=== PATIENT | female | born 1955 | race Caucasian/White ===

== ENCOUNTER 2018-12-16 09:42 | Day surgery (SDC) | payer BC, OTHER ==
[2018-12-13 14:00] VITALS: BMI 36.5
[2018-12-16 12:45] VITALS: BP 118/65; PULSE 75; TEMP 98
== END 2018-12-16 12:47 | disposition home or self-care (01) ==
LOC: FASU-ENDO 09:42
PROVIDERS: ATTEND Internal Medicine Gastroenterology
PROC: 0DJD8ZZ Inspection of Lower Intestinal Tract, Via Natural or Artificial Opening Endoscopic (ICD-10-PCS; principal; 2018-12-16 11:48)
DX: Z12.11 Encounter for screening for malignant neoplasm of colon (principal); K64.8 Other hemorrhoids

== ENCOUNTER 2022-01-20 22:32 | Inpatient (IN) | payer OTHER, BC ==
[2022-01-20 22:40] VITALS: BMI 37.0
[2022-01-21 01:16] LABS: BASO % 0.7 % (0-2.0); EOS % 2.8 % (0-4.5); HEMATOCRIT 37.7 % (32.4-45.2); HEMOGLOBIN 12.4 GM/dL (10.7-15.3); LYMPH % 24.7 % (8-40); MCH 27.1 pg (25.7-33.7); MCHC 32.9 g/dl (32.0-36.0); MEAN CELL VOLUME 82.3 fl (80-96); MEAN PLT VOLUME 8.1 fl (7.5-11.1); MONO % 6.6 % (3.8-10.2); NEUT % 65.2 % (42.8-82.8); PLATELET COUNT 302 10^3/uL (134-434); RBC 4.59 M/mm3 (3.60-5.2); WHITE BLOOD COUNT 7.6 K/mm3 (4.0-10.0)
[2022-01-21 01:22] LABS: PROTHROMBIN TIME (PATIENT) 11.5 SEC (9.7-13.0)
[2022-01-21 01:25] LABS: ACTIVATED PTT 28.9 SECONDS (25.2-36.5)
[2022-01-21 01:35] LABS: ALBUMIN 3.9 g/dl (3.4-5.0); BLOOD UREA NITROGEN 17.8 mg/dL (7-18); CALCIUM 9.9 mg/dL (8.5-10.1)
[2022-01-21 01:38] LABS: CREATININE 0.7 mg/dL (0.55-1.3)
[2022-01-21 01:40] LABS: BILIRUBIN,TOTAL 0.4 mg/dL (0.2-1); TOT PROT 7.3 g/dl (6.4-8.2)
[2022-01-21] MEDS ORDERED: CLINDAMYCIN 600MG PREMIX IVPB 600 MG/50 ML BAG IVPB ONE ×2 (01:41→01:44)
[2022-01-21 03:47] LABS: EPI CELLS 35 /uL (0-25.1); HYALINE CASTS 4 /uL (0-3.1); URINE APPEARANCE CLEAR; URINE BACTERIA 78 /uL (0-1359); URINE BILIRUBIN NEGATIVE (NEGATIVE); URINE COLOR YELLOW; URINE GLUCOSE (UA) NEGATIVE (NEGATIVE); URINE KETONE NEGATIVE (NEGATIVE); URINE LEUK ESTERASE 2+ (NEGATIVE); URINE NITRITE NEGATIVE (NEGATIVE); URINE PROTEIN NEGATIVE (NEGATIVE); URINE RBC 10 /uL (0-23.9); URINE UROBILINOGEN 0.2 mg/dL (0.2-1.0); URINE WBC 344 /uL (0-25.8)
[2022-01-21] MEDS: INSULIN SLIDING SCALE (NOVOLOG) 1 VIAL SQ SCH ×3 (07:26→16:35)
[2022-01-21] MEDS ORDERED: ENOXAPARIN NA (PORCINE) 40 MG/0.4 ML DISP.SYRIN SQ ONE (09:09)
[2022-01-21] MEDS ORDERED: CLINDAMYCIN 900 MG PREMIX IVPB 900 MG/50 ML BAG IVPB ONE ×2 (09:09→17:22)
[2022-01-21] MEDS: CLINDAMYCIN 900 MG PREMIX IVPB 900 MG/50 ML BAG IVPB SCH ×2 (09:29→17:40)
[2022-01-21] MEDS: ENOXAPARIN NA (PORCINE) 40 MG/0.4 ML DISP.SYRIN SQ SCH (09:29)
[2022-01-21] MEDS ORDERED: NITROFURANTOIN MACROCRYSTAL 50 MG CAPSULE (FP) PO SCH (10:00)
[2022-01-21 12:26] LABS: BASO % 0.8 % (0-2.0); EOS % 2.8 % (0-4.5); HEMATOCRIT 33.5 % (32.4-45.2); HEMOGLOBIN 11.2 GM/dL (10.7-15.3); LYMPH % 30.2 % (8-40); MCH 27.4 pg (25.7-33.7); MCHC 33.4 g/dl (32.0-36.0); MEAN CELL VOLUME 81.9 fl (80-96); MEAN PLT VOLUME 7.4 fl (7.5-11.1); MONO % 7.3 % (3.8-10.2); NEUT % 58.9 % (42.8-82.8); PLATELET COUNT 264 10^3/uL (134-434); RBC 4.09 M/mm3 (3.60-5.2); RDW 15.3 % (11.6-15.6); WHITE BLOOD COUNT 6.6 K/mm3 (4.0-10.0)
[2022-01-21 12:47] LABS: CALCIUM 9.3 mg/dL (8.5-10.1)
[2022-01-21 12:48] LABS: ALBUMIN 3.4 g/dl (3.4-5.0); BLOOD UREA NITROGEN 14.6 mg/dL (7-18)
[2022-01-21 12:51] LABS: CREATININE 0.7 mg/dL (0.55-1.3)
[2022-01-21 12:52] LABS: BILIRUBIN,TOTAL 0.5 mg/dL (0.2-1); TOT PROT 6.5 g/dl (6.4-8.2)
[2022-01-22] MEDS: INSULIN SLIDING SCALE (NOVOLOG) 1 VIAL SQ SCH ×5 (01:29→21:54)
[2022-01-22] MEDS ORDERED: CLINDAMYCIN 900 MG PREMIX IVPB 900 MG/50 ML BAG IVPB ONE ×2 (01:30→09:00)
[2022-01-22] MEDS: CLINDAMYCIN 900 MG PREMIX IVPB 900 MG/50 ML BAG IVPB SCH ×3 (01:35→18:25)
[2022-01-22 08:29] LABS: BASO % 0.5 % (0-2.0); EOS % 3.2 % (0-4.5); HEMOGLOBIN 11.9 GM/dL (10.7-15.3); LYMPH % 23.6 % (8-40); MCH 27.6 pg (25.7-33.7); MCHC 33.8 g/dl (32.0-36.0); MEAN CELL VOLUME 81.7 fl (80-96); MEAN PLT VOLUME 7.6 fl (7.5-11.1); MONO % 7.8 % (3.8-10.2); NEUT % 64.9 % (42.8-82.8); PLATELET COUNT 273 10^3/uL (134-434); RBC 4.29 M/mm3 (3.60-5.2); RDW 15.2 % (11.6-15.6); WHITE BLOOD COUNT 6.3 K/mm3 (4.0-10.0)
[2022-01-22 08:44] LABS: CALCIUM 9.4 mg/dL (8.5-10.1)
[2022-01-22 08:45] LABS: ALBUMIN 3.6 g/dl (3.4-5.0); BLOOD UREA NITROGEN 15.7 mg/dL (7-18); MAGNESIUM 2.2 mg/dL (1.8-2.4)
[2022-01-22 08:47] LABS: PHOSPHOROUS 4.4 mg/dL (2.5-4.9)
[2022-01-22 08:48] LABS: BILIRUBIN,TOTAL 0.5 mg/dL (0.2-1); CREATININE 0.7 mg/dL (0.55-1.3); TOT PROT 6.7 g/dl (6.4-8.2)
[2022-01-22] MEDS ORDERED: ENOXAPARIN NA (PORCINE) 40 MG/0.4 ML DISP.SYRIN SQ ONE (09:00)
[2022-01-22] MEDS: ENOXAPARIN NA (PORCINE) 40 MG/0.4 ML DISP.SYRIN SQ SCH (09:43)
[2022-01-23] MEDS ORDERED: ATORVASTATIN CA 20 MG TABLET (FP) PO ONE (01:34)
[2022-01-23] MEDS: CLINDAMYCIN 900 MG PREMIX IVPB 900 MG/50 ML BAG IVPB SCH ×3 (01:43→17:38)
[2022-01-23] MEDS: INSULIN SLIDING SCALE (NOVOLOG) 1 VIAL SQ SCH ×4 (06:39→21:17)
[2022-01-23] MEDS: ENOXAPARIN NA (PORCINE) 40 MG/0.4 ML DISP.SYRIN SQ SCH (09:52)
[2022-01-23] MEDS: IBUPROFEN 400 MG TABLET (FP) PO PRN ×2 (10:29→21:19)
[2022-01-23 10:57] VITALS: RESP 18
[2022-01-23 12:41] LABS: EOS % 3.5 % (0-4.5); HEMATOCRIT 34.5 % (32.4-45.2); HEMOGLOBIN 11.5 GM/dL (10.7-15.3); LYMPH % 22.9 % (8-40); MCH 27.4 pg (25.7-33.7); MCHC 33.5 g/dl (32.0-36.0); MEAN CELL VOLUME 81.8 fl (80-96); MONO % 8.7 % (3.8-10.2); NEUT % 63.9 % (42.8-82.8); PLATELET COUNT 291 10^3/uL (134-434); RBC 4.21 M/mm3 (3.60-5.2); RDW 14.8 % (11.6-15.6); WHITE BLOOD COUNT 6.5 K/mm3 (4.0-10.0)
[2022-01-23 13:08] LABS: ALBUMIN 3.5 g/dl (3.4-5.0); CALCIUM 9.2 mg/dL (8.5-10.1); MAGNESIUM 2.5 mg/dL (1.8-2.4)
[2022-01-23 13:11] LABS: CREATININE 0.6 mg/dL (0.55-1.3); PHOSPHOROUS 4.5 mg/dL (2.5-4.9)
[2022-01-23 13:13] LABS: BILIRUBIN,TOTAL 0.4 mg/dL (0.2-1); TOT PROT 6.8 g/dl (6.4-8.2)
[2022-01-23] MEDS ORDERED: INSULIN (NOVOLOG) ASPART 100 UNITS/ML 10ML VIAL ONE (21:06)
[2022-01-23] MEDS: ATORVASTATIN CA 20 MG TABLET (FP) PO SCH (21:17)
[2022-01-24] MEDS: CLINDAMYCIN 900 MG PREMIX IVPB 900 MG/50 ML BAG IVPB SCH ×3 (01:13→17:32)
[2022-01-24] MEDS: INSULIN SLIDING SCALE (NOVOLOG) 1 VIAL SQ SCH ×4 (06:28→22:22)
[2022-01-24] MEDS: ENOXAPARIN NA (PORCINE) 40 MG/0.4 ML DISP.SYRIN SQ SCH (09:54)
[2022-01-24] MEDS: IBUPROFEN 400 MG TABLET (FP) PO PRN ×2 (09:54→22:21)
[2022-01-24 12:55] LABS: HEMOGLOBIN 12.2 GM/dL (10.7-15.3); MCH 27.1 pg (25.7-33.7); MCHC 32.9 g/dl (32.0-36.0); MEAN CELL VOLUME 82.4 fl (80-96); MEAN PLT VOLUME 7.7 fl (7.5-11.1); PLATELET COUNT 308 10^3/uL (134-434); RBC 4.49 M/mm3 (3.60-5.2); WHITE BLOOD COUNT 5.8 K/mm3 (4.0-10.0)
[2022-01-24 14:02] LABS: ALBUMIN 3.8 g/dl (3.4-5.0); BLOOD UREA NITROGEN 15.9 mg/dL (7-18); CALCIUM 9.8 mg/dL (8.5-10.1)
[2022-01-24 14:03] LABS: MAGNESIUM 2.4 mg/dL (1.8-2.4)
[2022-01-24 14:05] LABS: CREATININE 0.6 mg/dL (0.55-1.3)
[2022-01-24 14:06] LABS: TOT PROT 7.1 g/dl (6.4-8.2)
[2022-01-24 14:07] LABS: BILIRUBIN,TOTAL 0.4 mg/dL (0.2-1)
[2022-01-24] MEDS: ATORVASTATIN CA 20 MG TABLET (FP) PO SCH (22:22)
[2022-01-25] MEDS: CLINDAMYCIN 900 MG PREMIX IVPB 900 MG/50 ML BAG IVPB SCH ×3 (02:07→17:21)
[2022-01-25] MEDS: INSULIN SLIDING SCALE (NOVOLOG) 1 VIAL SQ SCH ×4 (06:35→21:22)
[2022-01-25] MEDS ORDERED: INSULIN (NOVOLOG MIX 70/30) 100 UNITS/ML MDV SQ ONE (06:50)
[2022-01-25 08:23] LABS: HEMATOCRIT 35.9 % (32.4-45.2); HEMOGLOBIN 11.9 GM/dL (10.7-15.3); MCH 27.2 pg (25.7-33.7); MEAN CELL VOLUME 82.5 fl (80-96); MEAN PLT VOLUME 7.9 fl (7.5-11.1); PLATELET COUNT 307 10^3/uL (134-434); RBC 4.36 M/mm3 (3.60-5.2); RDW 15.2 % (11.6-15.6); WHITE BLOOD COUNT 5.2 K/mm3 (4.0-10.0)
[2022-01-25 08:46] LABS: CALCIUM 9.4 mg/dL (8.5-10.1)
[2022-01-25 08:47] LABS: ALBUMIN 3.5 g/dl (3.4-5.0); BLOOD UREA NITROGEN 16.4 mg/dL (7-18)
[2022-01-25 08:50] LABS: CREATININE 0.6 mg/dL (0.55-1.3)
[2022-01-25 08:51] LABS: BILIRUBIN,TOTAL 0.4 mg/dL (0.2-1); TOT PROT 6.7 g/dl (6.4-8.2)
[2022-01-25] MEDS: ENOXAPARIN NA (PORCINE) 40 MG/0.4 ML DISP.SYRIN SQ SCH (09:07)
[2022-01-25] MEDS: IBUPROFEN 400 MG TABLET (FP) PO PRN ×2 (11:32→21:21)
[2022-01-25] MEDS: ATORVASTATIN CA 20 MG TABLET (FP) PO SCH (21:22)
[2022-01-26] MEDS: CLINDAMYCIN 900 MG PREMIX IVPB 900 MG/50 ML BAG IVPB SCH (02:04)
[2022-01-26] MEDS: INSULIN SLIDING SCALE (NOVOLOG) 1 VIAL SQ SCH (06:27)
[2022-01-26 08:40] VITALS: BP 137/68; PULSE 90; TEMP 97.5
== END 2022-01-26 09:41 | disposition home health service (06) | DRG 603 ==
LOC: JER 22:32 → JERBED 01-21 00:06 → J6S 01-22 17:33
PROVIDERS: ADMIT Internal Medicine; ATTEND Internal Medicine
DX: L03.116 Cellulitis of left lower limb (principal); L97.909 Non-pressure chronic ulcer of unspecified part of unspecified lower leg with unspecified severity; N39.0 Urinary tract infection, site not specified; E11.42 Type 2 diabetes mellitus with diabetic polyneuropathy; E11.621 Type 2 diabetes mellitus with foot ulcer; E78.5 Hyperlipidemia, unspecified; E66.9 Obesity, unspecified; Z68.37 Body mass index [BMI] 37.0-37.9, adult
CPT/HCPCS: 11042; 36415; 71045-TC-FY; 73630-TC-LT; 73718-TC-LT; 80053; 81003; 82962; 83036; 83735; 84100; 85025; 85027; 85610; 85730; 86140; 87040; 87077; 87086; 93005; 93010; 93971-TC; 97116-GP; 97162-GP; 99285-25; C9803-CS; U0003; U0005

== ENCOUNTER 2022-03-31 16:31 | Inpatient (IN) | payer OTHER, BC ==
[2022-03-31] MEDS ORDERED: ACETAMINOPHEN 325 MG TABLET (FP) PO ONE (17:53)
[2022-03-31] MEDS ORDERED: ACETAMINOPHEN 325 MG TABLET (FP) ONE (17:55)
[2022-03-31 18:27] LABS: BASO % 0.7 % (0-2.0); EOS % 1.4 % (0-4.5); HEMATOCRIT 37.9 % (32.4-45.2); HEMOGLOBIN 12.2 GM/dL (10.7-15.3); LYMPH % 17.6 % (8-40); MCH 26.4 pg (25.7-33.7); MCHC 32.1 g/dl (32.0-36.0); MEAN CELL VOLUME 82.3 fl (80-96); MEAN PLT VOLUME 8.1 fl (7.5-11.1); MONO % 8.1 % (3.8-10.2); NEUT % 72.2 % (42.8-82.8); PLATELET COUNT 292 10^3/uL (134-434); RDW 15.3 % (11.6-15.6); WHITE BLOOD COUNT 9.5 K/mm3 (4.0-10.0)
[2022-03-31 18:57] LABS: CALCIUM 9.4 mg/dL (8.5-10.1)
[2022-03-31 18:58] LABS: ALBUMIN 3.3 g/dl (3.4-5.0); BLOOD UREA NITROGEN 23.4 mg/dL (7-18); MAGNESIUM 2.2 mg/dL (1.8-2.4)
[2022-03-31 19:01] LABS: CREATININE 0.7 mg/dL (0.55-1.3)
[2022-03-31 19:02] LABS: BILIRUBIN,TOTAL 0.4 mg/dL (0.2-1); TOT PROT 6.7 g/dl (6.4-8.2)
[2022-03-31] MEDS ORDERED: KETOROLAC TROMETHAMINE 15 MG/ML VIAL IVPUSH ONE (20:21)
[2022-03-31] MEDS ORDERED: LACTATED RINGERS SOLUTION 1,000 ML IV STA (20:21)
[2022-03-31] MEDS ORDERED: KETOROLAC TROMETHAMINE 15 MG/ML VIAL ONE (20:36)
[2022-03-31] MEDS: LACTATED RINGERS SOLUTION 1,000 ML/1,000 ML INFUS.BAG IV SCH (20:46)
[2022-03-31] MEDS ORDERED: ACETAMINOPHEN 1000 MG/100 ML BAG IVPB PRN (23:16)
[2022-03-31] MEDS: INSULIN SLIDING SCALE (NOVOLOG) 1 VIAL SQ SCH (23:34)
[2022-04-01] MEDS: INSULIN SLIDING SCALE (NOVOLOG) 1 VIAL SQ SCH ×4 (08:28→23:28)
[2022-04-01 09:36] LABS: BASO % 0.3 % (0-2.0); EOS % 2.4 % (0-4.5); HEMATOCRIT 33.1 % (32.4-45.2); HEMOGLOBIN 10.7 GM/dL (10.7-15.3); LYMPH % 23.4 % (8-40); MCH 26.7 pg (25.7-33.7); MCHC 32.4 g/dl (32.0-36.0); MEAN CELL VOLUME 82.2 fl (80-96); MONO % 7.3 % (3.8-10.2); NEUT % 66.6 % (42.8-82.8); PLATELET COUNT 265 10^3/uL (134-434); RBC 4.02 M/mm3 (3.60-5.2); WHITE BLOOD COUNT 7.2 K/mm3 (4.0-10.0)
[2022-04-01 10:09] LABS: CALCIUM 9.2 mg/dL (8.5-10.1); CREATININE 0.5 mg/dL (0.55-1.3); PHOSPHOROUS 3.9 mg/dL (2.5-4.9)
[2022-04-01 10:10] LABS: BILIRUBIN,TOTAL 0.7 mg/dL (0.2-1); BLOOD UREA NITROGEN 21.4 mg/dL (7-18); TOT PROT 6.1 g/dl (6.4-8.2)
[2022-04-01 10:11] LABS: MAGNESIUM 2.1 mg/dL (1.8-2.4)
[2022-04-01] MEDS: ENOXAPARIN NA (PORCINE) 40 MG/0.4 ML DISP.SYRIN SQ SCH (10:22)
[2022-04-01] MEDS: LACTATED RINGERS SOLUTION 1,000 ML/1,000 ML INFUS.BAG IV SCH ×2 (10:23→22:33)
[2022-04-01 11:53] VITALS: BMI 37.5
[2022-04-01] MEDS: ATORVASTATIN CA 20 MG TABLET (FP) PO SCH (22:33)
[2022-04-02] MEDS: INSULIN SLIDING SCALE (NOVOLOG) 1 VIAL SQ SCH ×4 (07:41→22:36)
[2022-04-02] MEDS: ENOXAPARIN NA (PORCINE) 40 MG/0.4 ML DISP.SYRIN SQ SCH (10:09)
[2022-04-02] MEDS: LACTATED RINGERS SOLUTION 1,000 ML/1,000 ML INFUS.BAG IV SCH ×2 (14:37→22:19)
[2022-04-02] MEDS ORDERED: ACETAMINOPHEN 325 MG TABLET (FP) PO PRN (17:21)
[2022-04-02] MEDS: ATORVASTATIN CA 20 MG TABLET (FP) PO SCH (22:19)
[2022-04-03] MEDS: INSULIN SLIDING SCALE (NOVOLOG) 1 VIAL SQ SCH ×4 (07:23→22:28)
[2022-04-03] MEDS: ENOXAPARIN NA (PORCINE) 40 MG/0.4 ML DISP.SYRIN SQ SCH (09:49)
[2022-04-03 10:23] LABS: HEMOGLOBIN 11.2 GM/dL (10.7-15.3); MCH 26.8 pg (25.7-33.7); MCHC 32.8 g/dl (32.0-36.0); MEAN CELL VOLUME 81.8 fl (80-96); MEAN PLT VOLUME 8.3 fl (7.5-11.1); PLATELET COUNT 297 10^3/uL (134-434); RBC 4.16 M/mm3 (3.60-5.2); RDW 15.1 % (11.6-15.6); WHITE BLOOD COUNT 5.9 K/mm3 (4.0-10.0)
[2022-04-03] MEDS ORDERED: INSULIN (NOVOLOG) ASPART 100 UNITS/ML 10ML VIAL ONE ×2 (10:59→17:09)
[2022-04-03 11:58] LABS: CALCIUM 9.6 mg/dL (8.5-10.1)
[2022-04-03 11:59] LABS: ALBUMIN 3.2 g/dl (3.4-5.0)
[2022-04-03 12:02] LABS: CREATININE 0.5 mg/dL (0.55-1.3)
[2022-04-03 12:03] LABS: BILIRUBIN,TOTAL 0.6 mg/dL (0.2-1)
[2022-04-03 12:07] LABS: TOT PROT 6.6 g/dl (6.4-8.2)
[2022-04-03 12:10] LABS: BLOOD UREA NITROGEN 11.6 mg/dL (7-18)
[2022-04-03] MEDS: LACTATED RINGERS SOLUTION 1,000 ML/1,000 ML INFUS.BAG IV SCH ×2 (20:30→22:31)
[2022-04-03] MEDS: ATORVASTATIN CA 20 MG TABLET (FP) PO SCH (22:26)
[2022-04-04] MEDS: INSULIN SLIDING SCALE (NOVOLOG) 1 VIAL SQ SCH ×4 (06:22→21:23)
[2022-04-04] MEDS: LACTATED RINGERS SOLUTION 1,000 ML/1,000 ML INFUS.BAG IV SCH (08:47)
[2022-04-04] MEDS: ENOXAPARIN NA (PORCINE) 40 MG/0.4 ML DISP.SYRIN SQ SCH (09:24)
[2022-04-04 10:44] LABS: EOS % 1.8 % (0-4.5); HEMATOCRIT 33.4 % (32.4-45.2); HEMOGLOBIN 10.8 GM/dL (10.7-15.3); LYMPH % 18.8 % (8-40); MCH 26.5 pg (25.7-33.7); MCHC 32.5 g/dl (32.0-36.0); MEAN CELL VOLUME 81.8 fl (80-96); MEAN PLT VOLUME 8.2 fl (7.5-11.1); MONO % 11.8 % (3.8-10.2); NEUT % 66.6 % (42.8-82.8); PLATELET COUNT 301 10^3/uL (134-434); RBC 4.08 M/mm3 (3.60-5.2); WHITE BLOOD COUNT 4.7 K/mm3 (4.0-10.0)
[2022-04-04 11:21] LABS: CALCIUM 9.5 mg/dL (8.5-10.1)
[2022-04-04 11:22] LABS: ALBUMIN 3.1 g/dl (3.4-5.0); BLOOD UREA NITROGEN 11.8 mg/dL (7-18); MAGNESIUM 2.3 mg/dL (1.8-2.4)
[2022-04-04 11:25] LABS: CREATININE 0.6 mg/dL (0.55-1.3); PHOSPHOROUS 4.2 mg/dL (2.5-4.9)
[2022-04-04 11:26] LABS: BILIRUBIN,TOTAL 0.4 mg/dL (0.2-1); TOT PROT 6.4 g/dl (6.4-8.2)
[2022-04-05 00:18] VITALS: RESP 18
[2022-04-05] MEDS: INSULIN SLIDING SCALE (NOVOLOG) 1 VIAL SQ SCH ×2 (06:48→12:03)
[2022-04-05 07:08] VITALS: BP 135/79; PULSE 87; TEMP 98.4
[2022-04-05] MEDS: ENOXAPARIN NA (PORCINE) 40 MG/0.4 ML DISP.SYRIN SQ SCH (10:57)
== END 2022-04-05 13:33 | DRG 557 ==
LOC: JER 16:31 → JERBED 20:23 → J8W 04-01 08:05 → J5S 04-04 20:18
PROVIDERS: ADMIT Internal Medicine; ATTEND Internal Medicine
DX: M62.82 Rhabdomyolysis (principal); U07.1 COVID-19; I10 Essential (primary) hypertension; E11.9 Type 2 diabetes mellitus without complications; M25.561 Pain in right knee; R26.2 Difficulty in walking, not elsewhere classified; R74.01 Elevation of levels of liver transaminase levels; M17.0 Bilateral primary osteoarthritis of knee
CPT/HCPCS: 0241U-QW; 36415; 73562-TC-LT-FY; 73562-TC-RT-FY; 80053; 82550; 82553; 82962; 83735; 84100; 85025; 85027; 93970-TC; 97116-GP; 97162-GP; 99285-25; C9803-CS; U0003; U0005

== ENCOUNTER 2022-09-01 04:06 | Day surgery (SDC) | payer OTHER, BC ==
[2022-08-31 09:35] VITALS: BMI 36.0
[2022-09-01] MEDS ORDERED: MIDAZOLAM HCL 2 MG/2 ML SINGLE DOSE VIAL ONE (09:27)
[2022-09-01] MEDS ORDERED: PROPOFOL 40 ML ONE ×2 (09:27→12:00)
[2022-09-01] MEDS ORDERED: CLINDAMYCIN 600MG PREMIX IVPB 1,200 MG/100 ML BAG IVPB ONE (10:21)
[2022-09-01] MEDS ORDERED: CLINDAMYCIN 900 MG PREMIX BAG IVPB ONE (10:25)
[2022-09-01] MEDS ORDERED: PROPOFOL 20 ML ONE ×4 (10:26→12:06)
[2022-09-01] MEDS ORDERED: PHENYLEPHRINE HCL 10 MG/1 ML SINGLE DOSE VIAL ONE (10:31)
[2022-09-01] MEDS ORDERED: BUPIVACAINE HCL/PF 0.5% (5 MG/ML) 30 ML VIAL IJ ONE (10:36)
[2022-09-01] MEDS ORDERED: LIDO 2%/EPI 1:200000 PRESRVFRE (20 ML SDVIAL) INF ONE (10:36)
[2022-09-01] MEDS ORDERED: oxyCODONE HCL 5 MG TABLET PO PRN (11:38)
[2022-09-01] MEDS ORDERED: ACETAMINOPHEN 325 MG TABLET (FP) PO PRN (11:38)
[2022-09-01] MEDS ORDERED: LACTATED RINGERS SOLUTION 1,000 ML IV SCH (11:45)
[2022-09-01 12:31] VITALS: RESP 18
[2022-09-01 15:07] VITALS: BP 130/70; PULSE 84; TEMP 98
== END 2022-09-01 13:35 | disposition home or self-care (01) ==
LOC: JASU-SURG 04:06
PROVIDERS: ATTEND Podiatrist Foot Surgery
PROC: 0QBP0ZZ Excision of Left Metatarsal, Open Approach (ICD-10-PCS; principal; 2022-09-01 10:00)
DX: M20.22 Hallux rigidus, left foot (principal)
CPT/HCPCS: 82962; 88304-TC; 88311-TC; 94760

== ENCOUNTER 2023-12-10 08:34 | Day surgery (SDC) | payer OTHER, BC ==
[2023-12-05 15:26] VITALS: BMI 36.0
[2023-12-10 10:43] VITALS: PULSE 98; TEMP 97.3
[2023-12-10 10:46] VITALS: BP 134/70; RESP 18
== END 2023-12-10 10:35 | disposition home or self-care (01) ==
LOC: FASU-ENDO 08:34
PROVIDERS: ATTEND Internal Medicine Gastroenterology
PROC: 0DBP8ZX Excision of Rectum, Via Natural or Artificial Opening Endoscopic, Diagnostic (ICD-10-PCS; principal; 2023-12-10 09:37)
DX: R19.7 Diarrhea, unspecified (principal)
CPT/HCPCS: 82962; 88305-TC

== ENCOUNTER 2024-01-28 15:37 | Emergency (ER) | payer OTHER, BC ==
[2024-01-28 17:58] VITALS: BMI 36.0
[2024-01-28 18:59] LABS: VENOUS BASE EXCESS 3.8 mmol/L (-2-2); VENOUS O2 SATURATION 58.7 % (70-80); VENOUS PCO2 43.6 mmHg (38-52); VENOUS PH 7.434 (7.310-7.410)
[2024-01-28 19:07] LABS: BASO % 0.9 % (0-2.0); EOS % 0.6 % (0-4.5); HEMATOCRIT 37.9 % (32.4-45.2); HEMOGLOBIN 12.4 GM/dL (10.7-15.3); LYMPH % 19.5 % (8-40); MCH 27.3 pg (25.7-33.7); MCHC 32.7 g/dl (32.0-36.0); MEAN CELL VOLUME 83.6 fl (80-96); MEAN PLT VOLUME 7.3 fl (7.5-11.1); MONO % 8.3 % (3.8-10.2); NEUT % 70.7 % (42.8-82.8); PLATELET COUNT 305 10^3/uL (134-434); RBC 4.53 M/mm3 (3.60-5.2); WHITE BLOOD COUNT 10.4 K/mm3 (4.0-10.0)
[2024-01-28 19:33] LABS: POTASSIUM 4.5 mmol/L (3.5-5.1)
[2024-01-28 19:35] LABS: ALBUMIN 3.2 g/dl (3.4-5.0); BLOOD UREA NITROGEN 18.1 mg/dL (7-18); CALCIUM 10.5 mg/dL (8.5-10.1)
[2024-01-28 19:38] LABS: CREATININE 0.8 mg/dL (0.55-1.3)
[2024-01-28 19:40] LABS: BILIRUBIN,TOTAL 0.9 mg/dL (0.2-1); TOT PROT 7.1 g/dl (6.4-8.2)
[2024-01-28] MEDS ORDERED: IGA IVPB ONE (21:45)
[2024-01-28] MEDS ORDERED: IMMUN GLOB IVPB ONE (21:45)
[2024-01-28] MEDS ORDERED: PRO IVPB ONE (21:45)
[2024-01-28] MEDS ORDERED: PRO IMMUN GLOB IVPB ONE (21:45)
[2024-01-28] MEDS: IMMUN GLOB G(IGG)/PRO/IGA 0-50 400 ML IVPB SCH (22:35)
[2024-01-28 22:54] VITALS: TEMP 98.9
[2024-01-29 02:53] VITALS: BP 158/99; PULSE 97; RESP 16
[2024-01-29] MEDS ORDERED: IMMUN GLOB G(IGG)/PRO/IGA 0-50 400 ML, IMMUN GLOB G(IGG)/PRO/IGA 0-50 200 ML, IMMUN GLOB G IVPB SCH (10:00)
== END 2024-01-29 03:10 | disposition short-term general hospital (02) ==
LOC: JER 15:37
PROC: 3E033GC Introduction of Other Therapeutic Substance into Peripheral Vein, Percutaneous Approach (ICD-10-PCS; principal; 2024-01-28)
DX: G62.9 Polyneuropathy, unspecified (principal); R20.0 Anesthesia of skin; M62.81 Muscle weakness (generalized); M25.561 Pain in right knee; M25.562 Pain in left knee; G89.29 Other chronic pain; W01.0XXA Fall on same level from slipping, tripping and stumbling without subsequent striking against object, initial encounter; Z20.822 Contact with and (suspected) exposure to COVID-19
CPT/HCPCS: 0241U-QW; 36415; 70450-TC; 71045-TC-FY; 72128-TC; 72131-TC; 72170-TC-FY; 73030-TC-LT-FY; 73030-TC-RT-FY; 80053; 82803; 83735; 84484; 85025; 99285-25; J1459

== ENCOUNTER 2024-03-24 03:23 | Inpatient (IN) | payer OTHER, BC ==
[2024-03-24] MEDS: LACTATED RINGERS SOLUTION 1000 ML INFUS.BAG IV ONE ×2 (04:45→21:19)
[2024-03-24] MEDS: ACETAMINOPHEN 1000 MG/100 ML BAG IVPB ONE (04:45)
[2024-03-24] MEDS ORDERED: VANCOMYCIN/WATER 1250 MG 1,250 MG/250 ML BAG IVPB ONE (04:50)
[2024-03-24] MEDS ORDERED: ACETAMINOPHEN INJECTION 100 ML ONE (04:50)
[2024-03-24] MEDS: VANCOMYCIN/WATER 1250 MG 1,250 MG/250 ML BAG IVPB ONE (05:00)
[2024-03-24 05:08] LABS: VENOUS BASE EXCESS 0.9 mmol/L (-2-2); VENOUS O2 SATURATION 70.1 % (70-80); VENOUS PCO2 54.7 mmHg (38-52); VENOUS PH 7.322 (7.310-7.410)
[2024-03-24 05:14] LABS: HEMATOCRIT 31.9 % (32.4-45.2); MCH 27.7 pg (25.7-33.7); MCHC 31.2 g/dl (32.0-36.0); MEAN CELL VOLUME 88.5 fl (80-96); MEAN PLT VOLUME 8.5 fl (7.5-11.1); PLATELET COUNT 292 10^3/uL (134-434); RBC 3.61 M/mm3 (3.60-5.2); RDW 19.3 % (11.6-15.6); WHITE BLOOD COUNT 3.9 K/mm3 (4.0-10.0)
[2024-03-24 05:16] LABS: EPI CELLS 6 /uL (0-25.1); HYALINE CASTS 0 /uL (0-3.1); URINE APPEARANCE TURBID; URINE BILIRUBIN 3+ (NEGATIVE); URINE COLOR RED; URINE GLUCOSE (UA) NEGATIVE (NEGATIVE); URINE KETONE NEGATIVE (NEGATIVE); URINE LEUK ESTERASE 3+ (NEGATIVE); URINE NITRITE POSITIVE (NEGATIVE); URINE PROTEIN 2+ (NEGATIVE); URINE RBC 2 /uL (0-23.9); URINE UROBILINOGEN 0.2 mg/dL (0.2-1.0); URINE WBC 0 /uL (0-25.8)
[2024-03-24 05:27] LABS: INR 1.9 (0.83-1.09); PROTHROMBIN TIME (PATIENT) 21.4 SEC (9.7-13.0)
[2024-03-24 05:29] LABS: ACTIVATED PTT 30.4 SECONDS (25.2-36.5); CHLORIDE 99 mmol/L (98-107); SODIUM 135 mmol/L (136-145)
[2024-03-24 05:31] LABS: ALBUMIN 2.4 g/dl (3.4-5.0); CALCIUM 9.3 mg/dL (8.5-10.1); CO2 25 mmol/L (21-32); GLUCOSE,RANDOM 161 mg/dL (74-106)
[2024-03-24 05:34] LABS: CREATININE 3.1 mg/dL (0.55-1.3); SGOT/AST 38 U/L (15-37); SGPT/ALT 55 U/L (13-61)
[2024-03-24 05:36] LABS: TOT PROT 6.3 g/dl (6.4-8.2)
[2024-03-24 05:37] LABS: ALK PHOS 197 U/L (45-117)
[2024-03-24 05:41] LABS: ANION GAP 11 mmol/L (4-13); BLOOD UREA NITROGEN 123.2 mg/dL (7-18); LACTIC ACID 3.4 mmol/L (0.4-2.0); POTASSIUM 9.1 mmol/L (3.5-5.1)
[2024-03-24] MEDS ORDERED: SODIUM BICARBONATE 8.4% 50 MEQ/50 ML VIAL ONE (06:10)
[2024-03-24] MEDS ORDERED: CALCIUM GLUCONATE 10% - 1,000 MG/10 ML VIAL ONE (06:10)
[2024-03-24] MEDS ORDERED: DEXTROSE 50%-WATER 25 GM/50 ML DISP.SYRIN ONE (06:11)
[2024-03-24] MEDS ORDERED: INSULIN REGULAR HUMAN 100 UNITS/ML *VIAL ONE (06:11)
[2024-03-24] MEDS: INSULIN REGULAR HUMAN 100 UNITS/ML *VIAL IVPUSH ONE (06:30)
[2024-03-24] MEDS: SODIUM BICARBONATE 8.4% 50 MEQ/50 ML DISP.SYRIN IVPUSH ONE (06:30)
[2024-03-24] MEDS: CALCIUM GLUCONATE 10% - 1,000 MG/10 ML VIAL IVPUSH ONE (06:30)
[2024-03-24] MEDS: DEXTROSE 50%-WATER 25 GM/50 ML DISP.SYRIN IVPUSH ONE (06:30)
[2024-03-24] MEDS: LACTATED RINGERS SOLUTION 1,000 ML/1,000 ML INFUS.BAG IV SCH (07:01)
[2024-03-24 07:04] LABS: ANISOCYTOSIS 2+; MACROCYTOSIS 0
[2024-03-24 07:07] LABS: CHLORIDE 100 mmol/L (98-107); SODIUM 135 mmol/L (136-145)
[2024-03-24 07:09] LABS: CALCIUM 8.9 mg/dL (8.5-10.1); CO2 25 mmol/L (21-32); GLUCOSE,RANDOM 192 mg/dL (74-106)
[2024-03-24 07:12] LABS: CREATININE 3.1 mg/dL (0.55-1.3)
[2024-03-24 07:21] LABS: ANION GAP 10 mmol/L (4-13); BLOOD UREA NITROGEN 140.1 mg/dL (7-18); POTASSIUM 8.3 mmol/L (3.5-5.1)
[2024-03-24] MEDS: SODIUM CHLORIDE 1,000 ML IV STA ×2 (10:03→14:05)
[2024-03-24 11:08] LABS: URINE BACTERIA 1726 /uL (0-1359)
[2024-03-24] MEDS: MUPIROCIN 2% TOPICAL OINTMENT FOR DECOLONIZATION NS SCH (11:35)
[2024-03-24] MEDS: NOREPINEPHRINE BITARTRATE 4,000 MCG in DEXTROSE 5%-WATER - 496 ML IV SCH (11:36)
[2024-03-24] MEDS ORDERED: SODIUM CHLORIDE 250 ML IV PRN (11:46)
[2024-03-24 14:12] LABS: IRON SERUM 22 ug/dL (50-175)
[2024-03-24 14:13] LABS: TOTAL IRON BINDING CAPACITY 204 ug/dL (250-450)
[2024-03-24 14:43] LABS: RETICULOCYTES 1.25 % (0.5-1.5)
[2024-03-24] MEDS: ALBUTEROL SO4 0.5 % INH SOLN 2.5 MG/0.5 ML VIAL.NEB. NEB SCH (15:47)
[2024-03-24] MEDS: INSULIN ASPART SLIDING SCALE (NOVOLOG) 1 VIAL SQ SCH (15:53)
[2024-03-24 16:18] LABS: POTASSIUM 4.3 mmol/L (3.5-5.1)
[2024-03-24 16:20] LABS: CALCIUM 8.4 mg/dL (8.5-10.1)
[2024-03-24 16:23] LABS: CREATININE 1.6 mg/dL (0.55-1.3)
[2024-03-24 16:27] LABS: BLOOD UREA NITROGEN 74.2 mg/dL (7-18)
[2024-03-24] MEDS: ARTIFICIAL TEARS OPHTHALMIC DROPS OU SCH (17:29)
[2024-03-24] MEDS: MEROPENEM-0.9% SODIUM CHLORIDE 1 GM/50 ML BAG IVPB SCH (17:30)
[2024-03-24] MEDS: ACETAMINOPHEN 1000 MG/100 ML BAG IVPB PRN (18:41)
[2024-03-24 20:32] LABS: MCH 27.5 pg (25.7-33.7); MCHC 31.2 g/dl (32.0-36.0); MEAN CELL VOLUME 87.9 fl (80-96); MEAN PLT VOLUME 7.7 fl (7.5-11.1); PLATELET COUNT 209 10^3/uL (134-434); RBC 2.41 M/mm3 (3.60-5.2); RDW 18.9 % (11.6-15.6); WHITE BLOOD COUNT 3.9 K/mm3 (4.0-10.0)
[2024-03-24 20:48] LABS: HEMOGLOBIN 6.6 GM/dL (10.7-15.3)
[2024-03-24 20:49] LABS: HEMATOCRIT 21.2 % (32.4-45.2)
[2024-03-24] MEDS: METOPROLOL TARTRATE 25 MG TABLET (FP) GT SCH (21:38)
[2024-03-24] MEDS: ATORVASTATIN CA 20 MG TABLET (FP) GT SCH (21:39)
[2024-03-24] MEDS: PANTOPRAZOLE SODIUM 40 MG VIAL IVPUSH SCH (21:40)
[2024-03-24] MEDS: CHLORHEXIDINE GLUCONATE 4% CLEANSER FOR DECOLONIZATION TP SCH (21:40)
[2024-03-25] MEDS: TAMSULOSIN HCL 0.4 MG CAP PO SCH (07:41)
[2024-03-25 08:44] LABS: HEMATOCRIT 24.6 % (32.4-45.2); HEMOGLOBIN 7.9 GM/dL (10.7-15.3); MCH 27.8 pg (25.7-33.7); MEAN CELL VOLUME 86.8 fl (80-96); MEAN PLT VOLUME 8.3 fl (7.5-11.1); PLATELET COUNT 214 10^3/uL (134-434); RBC 2.83 M/mm3 (3.60-5.2); RDW 18.9 % (11.6-15.6); WHITE BLOOD COUNT 6.3 K/mm3 (4.0-10.0)
[2024-03-25 08:58] LABS: POTASSIUM 4.6 mmol/L (3.5-5.1)
[2024-03-25 09:00] LABS: ALBUMIN 1.8 g/dl (3.4-5.0); BLOOD UREA NITROGEN 93.3 mg/dL (7-18); CALCIUM 8.7 mg/dL (8.5-10.1); MAGNESIUM 2.3 mg/dL (1.8-2.4)
[2024-03-25 09:03] LABS: CREATININE 2.1 mg/dL (0.55-1.3); PHOSPHOROUS 3.8 mg/dL (2.5-4.9)
[2024-03-25 09:05] LABS: BILIRUBIN,TOTAL 0.9 mg/dL (0.2-1); TOT PROT 5.1 g/dl (6.4-8.2)
[2024-03-25] MEDS: EZETIMIBE 10 MG TABLET (FP) GT SCH (09:10)
[2024-03-25] MEDS: ZINC SULFATE 220 MG CAPSULE (FP) GT SCH (09:10)
[2024-03-25 09:46] LABS: ANISOCYTOSIS 2+; MACROCYTOSIS 0
[2024-03-25] MEDS ORDERED: FAMOTIDINE 20 MG TABLET PEG SCH (10:00)
[2024-03-25] MEDS ORDERED: VANCOMYCIN ORAL SOLUTION 125 MG/2.5 ML PO SCH (10:00)
[2024-03-25] MEDS: MIDODRINE HCL 5 MG TABLET GT SCH (10:26)
[2024-03-25 15:04] LABS: HEMATOCRIT 24.4 % (32.4-45.2); HEMOGLOBIN 7.8 GM/dL (10.7-15.3); MCH 27.7 pg (25.7-33.7); MEAN CELL VOLUME 86.7 fl (80-96); MEAN PLT VOLUME 8.1 fl (7.5-11.1); PLATELET COUNT 210 10^3/uL (134-434); RBC 2.81 M/mm3 (3.60-5.2); RDW 18.9 % (11.6-15.6); WHITE BLOOD COUNT 6.1 K/mm3 (4.0-10.0)
[2024-03-25] MEDS ORDERED: DOXAZOSIN MESYLATE 1 MG TABLET PO SCH (22:00)
[2024-03-25] MEDS: ACETAMINOPHEN 1000 MG/100 ML BAG IVPB PRN (22:15)
[2024-03-26] MEDS: DOXAZOSIN MESYLATE 1 MG TABLET GT SCH (00:05)
[2024-03-26] MEDS ORDERED: LACTATED RINGERS SOLUTION 1,000 ML/1,000 ML INFUS.BAG IV SCH (00:25)
[2024-03-26 06:55] LABS: HEMATOCRIT 26.1 % (32.4-45.2); HEMOGLOBIN 8.4 GM/dL (10.7-15.3); MCH 28.1 pg (25.7-33.7); MCHC 32.1 g/dl (32.0-36.0); MEAN CELL VOLUME 87.5 fl (80-96); MEAN PLT VOLUME 8.5 fl (7.5-11.1); PLATELET COUNT 214 10^3/uL (134-434); RBC 2.98 M/mm3 (3.60-5.2); RDW 19.5 % (11.6-15.6); WHITE BLOOD COUNT 6.9 K/mm3 (4.0-10.0)
[2024-03-26 07:03] LABS: POTASSIUM 4.7 mmol/L (3.5-5.1)
[2024-03-26 07:09] LABS: CREATININE 2.3 mg/dL (0.55-1.3)
[2024-03-26 07:10] LABS: BILIRUBIN,TOTAL 0.4 mg/dL (0.2-1); TOT PROT 5.4 g/dl (6.4-8.2)
[2024-03-26] MEDS: ARTIFICIAL TEARS OPHTHALMIC DROPS OU SCH (07:11)
[2024-03-26] MEDS: INSULIN ASPART SLIDING SCALE (NOVOLOG) 1 VIAL SQ SCH (07:12)
[2024-03-26] MEDS: MIDODRINE HCL 5 MG TABLET GT SCH (07:12)
[2024-03-26] MEDS: ALBUTEROL SO4 0.5 % INH SOLN 2.5 MG/0.5 ML VIAL.NEB. NEB SCH (08:35)
[2024-03-26] MEDS: MEROPENEM-0.9% SODIUM CHLORIDE 1 GM/50 ML BAG IVPB SCH (09:01)
[2024-03-26] MEDS: ZINC SULFATE 220 MG CAPSULE (FP) GT SCH (09:02)
[2024-03-26] MEDS: PANTOPRAZOLE SODIUM 40 MG VIAL IVPUSH SCH (09:02)
[2024-03-26] MEDS: EZETIMIBE 10 MG TABLET (FP) GT SCH (09:02)
[2024-03-26] MEDS: SODIUM CHLORIDE 0.45% 1,000 ML IV SCH (09:02)
[2024-03-26] MEDS: MUPIROCIN 2% TOPICAL OINTMENT FOR DECOLONIZATION NS SCH (09:02)
[2024-03-26] MEDS: METOPROLOL TARTRATE 25 MG TABLET (FP) GT SCH (09:02)
[2024-03-26 10:53] LABS: ANISOCYTOSIS 1+; MACROCYTOSIS 0
[2024-03-26 15:48] LABS: HEMATOCRIT 25.4 % (32.4-45.2); MCH 27.6 pg (25.7-33.7); MCHC 31.5 g/dl (32.0-36.0); MEAN CELL VOLUME 87.6 fl (80-96); MEAN PLT VOLUME 8.2 fl (7.5-11.1); PLATELET COUNT 215 10^3/uL (134-434)
[2024-03-26] MEDS: SODIUM ZIRCONIUM CYCLOSILICATE (LOKELMA) 5 GM PACKET PO SCH (16:14)
[2024-03-26] MEDS: BACITRACIN ZINC 15 GM TUBE TOPICAL OINTMENT TP SCH (16:14)
[2024-03-26] MEDS: VANCOMYCIN ORAL SOLUTION 125 MG/2.5 ML PO SCH (18:28)
[2024-03-26] MEDS: APIXABAN 2.5 MG TABLET PO SCH (21:17)
[2024-03-26] MEDS: ATORVASTATIN CA 20 MG TABLET (FP) GT SCH (21:17)
[2024-03-26] MEDS: CHLORHEXIDINE GLUCONATE 4% CLEANSER FOR DECOLONIZATION TP SCH (21:18)
[2024-03-26] MEDS: ZINC OXIDE 20% TOPICAL OINTMENT 30 GM TUBE TP SCH (21:18)
[2024-03-27 06:29] LABS: HEMATOCRIT 27.7 % (32.4-45.2); HEMOGLOBIN 8.7 GM/dL (10.7-15.3); MCH 27.5 pg (25.7-33.7); MCHC 31.2 g/dl (32.0-36.0); MEAN PLT VOLUME 8.4 fl (7.5-11.1); PLATELET COUNT 221 10^3/uL (134-434); RBC 3.15 M/mm3 (3.60-5.2); RDW 19.3 % (11.6-15.6)
[2024-03-27 06:48] LABS: CALCIUM 8.6 mg/dL (8.5-10.1)
[2024-03-27 06:50] LABS: BLOOD UREA NITROGEN 85.5 mg/dL (7-18); MAGNESIUM 2.3 mg/dL (1.8-2.4)
[2024-03-27 06:52] LABS: CREATININE 1.8 mg/dL (0.55-1.3)
[2024-03-27 06:54] LABS: BILIRUBIN,TOTAL 0.3 mg/dL (0.2-1); TOT PROT 5.4 g/dl (6.4-8.2)
[2024-03-27] MEDS: SODIUM CHLORIDE 0.45% 1,000 ML IV SCH (14:45)
[2024-03-27 16:45] LABS: HEMATOCRIT 27.5 % (32.4-45.2); HEMOGLOBIN 8.6 GM/dL (10.7-15.3); MCH 27.4 pg (25.7-33.7); MCHC 31.1 g/dl (32.0-36.0); MEAN CELL VOLUME 87.9 fl (80-96); MEAN PLT VOLUME 8.1 fl (7.5-11.1); PLATELET COUNT 223 10^3/uL (134-434); RBC 3.13 M/mm3 (3.60-5.2); RDW 19.1 % (11.6-15.6); WHITE BLOOD COUNT 11.3 K/mm3 (4.0-10.0)
[2024-03-27] MEDS: ACETAMINOPHEN 1000 MG/100 ML BAG IVPB PRN (22:06)
[2024-03-27] MEDS: SIMETHICONE 40 MG/0.6 ML BOTTLE PO PRN (23:01)
[2024-03-28 06:31] LABS: HEMOGLOBIN 8.2 GM/dL (10.7-15.3); MCH 27.8 pg (25.7-33.7); MCHC 31.4 g/dl (32.0-36.0); MEAN CELL VOLUME 88.5 fl (80-96); MEAN PLT VOLUME 8.1 fl (7.5-11.1); PLATELET COUNT 229 10^3/uL (134-434); RBC 2.94 M/mm3 (3.60-5.2); RDW 18.9 % (11.6-15.6); WHITE BLOOD COUNT 11.6 K/mm3 (4.0-10.0)
[2024-03-28 06:45] LABS: POTASSIUM 3.9 mmol/L (3.5-5.1)
[2024-03-28 07:04] LABS: BLOOD UREA NITROGEN 82.4 mg/dL (7-18)
[2024-03-28 07:06] LABS: CALCIUM 8.5 mg/dL (8.5-10.1); MAGNESIUM 2.1 mg/dL (1.8-2.4)
[2024-03-28 07:10] LABS: PHOSPHOROUS 3.2 mg/dL (2.5-4.9)
[2024-03-28 07:11] LABS: BILIRUBIN,TOTAL 0.3 mg/dL (0.2-1); CREATININE 1.2 mg/dL (0.55-1.3); TOT PROT 5.1 g/dl (6.4-8.2)
[2024-03-28 08:52] LABS: ANISOCYTOSIS 0; MACROCYTOSIS 0
[2024-03-28] MEDS: SODIUM CHLORIDE 0.45% 1,000 ML IV SCH (14:24)
[2024-03-28 14:43] VITALS: BMI 32.8
[2024-03-28 16:44] LABS: HEMATOCRIT 26.5 % (32.4-45.2); HEMOGLOBIN 8.1 GM/dL (10.7-15.3); MCH 27.1 pg (25.7-33.7); MCHC 30.7 g/dl (32.0-36.0); MEAN CELL VOLUME 88.4 fl (80-96); MEAN PLT VOLUME 7.7 fl (7.5-11.1); PLATELET COUNT 235 10^3/uL (134-434); RDW 18.6 % (11.6-15.6); WHITE BLOOD COUNT 11.7 K/mm3 (4.0-10.0)
[2024-03-29 06:28] LABS: HEMATOCRIT 30.3 % (32.4-45.2); HEMOGLOBIN 9.5 GM/dL (10.7-15.3); MCH 27.8 pg (25.7-33.7); MCHC 31.2 g/dl (32.0-36.0); MEAN CELL VOLUME 88.9 fl (80-96); MEAN PLT VOLUME 7.4 fl (7.5-11.1); PLATELET COUNT 267 10^3/uL (134-434); RBC 3.41 M/mm3 (3.60-5.2); RDW 18.9 % (11.6-15.6); WHITE BLOOD COUNT 9.9 K/mm3 (4.0-10.0)
[2024-03-29 06:57] LABS: BLOOD UREA NITROGEN 75.1 mg/dL (7-18); CALCIUM 9.1 mg/dL (8.5-10.1)
[2024-03-29 06:58] LABS: ALBUMIN 2.1 g/dl (3.4-5.0)
[2024-03-29 07:01] LABS: CREATININE 0.8 mg/dL (0.55-1.3); PHOSPHOROUS 2.9 mg/dL (2.5-4.9)
[2024-03-29 07:02] LABS: BILIRUBIN,TOTAL 0.3 mg/dL (0.2-1); TOT PROT 5.4 g/dl (6.4-8.2)
[2024-03-29] MEDS ORDERED: ACETAMINOPHEN 1000 MG/100 ML BAG IVPB PRN (14:57)
[2024-03-30 07:04] LABS: HEMOGLOBIN 8.6 GM/dL (10.7-15.3); MCH 28.1 pg (25.7-33.7); MEAN CELL VOLUME 87.8 fl (80-96); MEAN PLT VOLUME 7.4 fl (7.5-11.1); PLATELET COUNT 297 10^3/uL (134-434); RBC 3.08 M/mm3 (3.60-5.2); RDW 18.1 % (11.6-15.6); WHITE BLOOD COUNT 10.9 K/mm3 (4.0-10.0)
[2024-03-30 07:25] LABS: POTASSIUM 3.9 mmol/L (3.5-5.1)
[2024-03-30 07:27] LABS: ALBUMIN 2.1 g/dl (3.4-5.0); BLOOD UREA NITROGEN 55.2 mg/dL (7-18); MAGNESIUM 1.8 mg/dL (1.8-2.4)
[2024-03-30 07:30] LABS: CREATININE 0.5 mg/dL (0.55-1.3); PHOSPHOROUS 2.4 mg/dL (2.5-4.9)
[2024-03-30 07:31] LABS: BILIRUBIN,TOTAL 0.3 mg/dL (0.2-1); TOT PROT 5.3 g/dl (6.4-8.2)
[2024-03-30 09:15] LABS: ANISOCYTOSIS 0; MACROCYTOSIS 0
[2024-03-30] MEDS: DEXTROSE 5%-WATER - 1,000 ML IV SCH (16:53)
[2024-03-30] MEDS: ACETAMINOPHEN 1000 MG/100 ML BAG IVPB PRN (17:16)
[2024-03-30] MEDS: POTASSIUM PHOSPHATE 15 MM in SODIUM CHLORIDE 250 ML IVPB ONE (18:22)
[2024-03-31 07:12] LABS: HEMATOCRIT 29.5 % (32.4-45.2); HEMOGLOBIN 9.1 GM/dL (10.7-15.3); MCH 27.3 pg (25.7-33.7); MCHC 30.9 g/dl (32.0-36.0); MEAN CELL VOLUME 88.4 fl (80-96); MEAN PLT VOLUME 7.3 fl (7.5-11.1); PLATELET COUNT 371 10^3/uL (134-434); RBC 3.34 M/mm3 (3.60-5.2); RDW 18.1 % (11.6-15.6); WHITE BLOOD COUNT 12.4 K/mm3 (4.0-10.0)
[2024-03-31 07:26] LABS: POTASSIUM 4.4 mmol/L (3.5-5.1)
[2024-03-31 07:31] LABS: ALBUMIN 2.1 g/dl (3.4-5.0); BLOOD UREA NITROGEN 40.4 mg/dL (7-18); MAGNESIUM 1.7 mg/dL (1.8-2.4)
[2024-03-31 07:34] LABS: CREATININE 0.4 mg/dL (0.55-1.3)
[2024-03-31 07:35] LABS: PHOSPHOROUS 3.5 mg/dL (2.5-4.9)
[2024-03-31 07:36] LABS: BILIRUBIN,TOTAL 0.3 mg/dL (0.2-1); TOT PROT 5.6 g/dl (6.4-8.2)
[2024-03-31] MEDS: MAGNESIUM SULF 50% (8.12 MEQ/2 ML-1 GM VIAL) IVPB ONE (10:07)
[2024-03-31] MEDS: MIDODRINE HCL 5 MG TABLET GT SCH (14:04)
[2024-03-31] MEDS: DEXTROSE 5%-WATER - 1,000 ML IV SCH (15:22)
[2024-04-01 07:17] LABS: HEMOGLOBIN 8.7 GM/dL (10.7-15.3); MCH 27.5 pg (25.7-33.7); MCHC 31.2 g/dl (32.0-36.0); MEAN PLT VOLUME 7.1 fl (7.5-11.1); PLATELET COUNT 381 10^3/uL (134-434); RBC 3.18 M/mm3 (3.60-5.2); RDW 18.6 % (11.6-15.6); WHITE BLOOD COUNT 11.9 K/mm3 (4.0-10.0)
[2024-04-01 07:34] LABS: POTASSIUM 4.6 mmol/L (3.5-5.1)
[2024-04-01 07:38] LABS: BLOOD UREA NITROGEN 35.3 mg/dL (7-18)
[2024-04-01 07:39] LABS: ALBUMIN 2.2 g/dl (3.4-5.0); CALCIUM 8.9 mg/dL (8.5-10.1)
[2024-04-01 07:40] LABS: MAGNESIUM 1.6 mg/dL (1.8-2.4)
[2024-04-01 07:43] LABS: CREATININE 0.4 mg/dL (0.55-1.3); PHOSPHOROUS 2.9 mg/dL (2.5-4.9); TOT PROT 5.5 g/dl (6.4-8.2)
[2024-04-01 07:44] LABS: BILIRUBIN,TOTAL 0.2 mg/dL (0.2-1)
[2024-04-01] MEDS: MAGNESIUM 2GM/50ML STERILE WATER IVPB IVPB ONE (09:19)
[2024-04-01] MEDS ORDERED: SIMETHICONE 40 MG/0.6 ML BOTTLE PO PRN (17:46)
[2024-04-01] MEDS ORDERED: ACETAMINOPHEN 1000 MG/100 ML BAG IVPB PRN (17:46)
[2024-04-01] MEDS: ARTIFICIAL TEARS OPHTHALMIC DROPS OU SCH (18:00)
[2024-04-01] MEDS ORDERED: MIDODRINE HCL 5 MG TABLET GT SCH (22:00)
[2024-04-01] MEDS ORDERED: CHLORHEXIDINE GLUCONATE 4% CLEANSER FOR DECOLONIZATION TP SCH (22:00)
[2024-04-01] MEDS: METOPROLOL TARTRATE 25 MG TABLET (FP) GT SCH (22:16)
[2024-04-01] MEDS: ATORVASTATIN CA 20 MG TABLET (FP) GT SCH (22:16)
[2024-04-01] MEDS: MEROPENEM-0.9% SODIUM CHLORIDE 1 GM/50 ML BAG IVPB SCH (22:16)
[2024-04-01] MEDS: PANTOPRAZOLE SODIUM 40 MG VIAL IVPUSH SCH (22:16)
[2024-04-01] MEDS: APIXABAN 2.5 MG TABLET PO SCH (22:16)
[2024-04-01] MEDS: VANCOMYCIN ORAL SOLUTION 125 MG/2.5 ML PO SCH (22:17)
[2024-04-01] MEDS: BACITRACIN ZINC 15 GM TUBE TOPICAL OINTMENT TP SCH (22:18)
[2024-04-01] MEDS: ZINC OXIDE 20% TOPICAL OINTMENT 30 GM TUBE TP SCH (22:18)
[2024-04-02] MEDS: INSULIN ASPART SLIDING SCALE (NOVOLOG) 1 VIAL SQ SCH (06:12)
[2024-04-02 08:13] VITALS: PULSE 93
[2024-04-02 09:24] LABS: BASO % 0.6 % (0-2.0); EOS % 1.9 % (0-4.5); HEMATOCRIT 29.8 % (32.4-45.2); HEMOGLOBIN 9.5 GM/dL (10.7-15.3); MCH 27.6 pg (25.7-33.7); MEAN CELL VOLUME 86.2 fl (80-96); MEAN PLT VOLUME 7.6 fl (7.5-11.1); MONO % 2.7 % (3.8-10.2); NEUT % 84.8 % (42.8-82.8); PLATELET COUNT 379 10^3/uL (134-434); RBC 3.45 M/mm3 (3.60-5.2); RDW 18.1 % (11.6-15.6); WHITE BLOOD COUNT 8.8 K/mm3 (4.0-10.0)
[2024-04-02 09:39] LABS: POTASSIUM 4.7 mmol/L (3.5-5.1)
[2024-04-02 09:42] LABS: ALBUMIN 2.2 g/dl (3.4-5.0); BLOOD UREA NITROGEN 26.3 mg/dL (7-18); CALCIUM 8.9 mg/dL (8.5-10.1); MAGNESIUM 1.9 mg/dL (1.8-2.4)
[2024-04-02 09:44] LABS: CREATININE 0.4 mg/dL (0.55-1.3)
[2024-04-02 09:46] LABS: PHOSPHOROUS 3.2 mg/dL (2.5-4.9)
[2024-04-02 09:47] LABS: BILIRUBIN,TOTAL 0.3 mg/dL (0.2-1); TOT PROT 5.4 g/dl (6.4-8.2)
[2024-04-02] MEDS: EZETIMIBE 10 MG TABLET (FP) GT SCH (09:55)
[2024-04-02] MEDS: ZINC SULFATE 220 MG CAPSULE (FP) GT SCH (09:55)
[2024-04-02 14:57] VITALS: BP 136/81; RESP 20; TEMP 98.4
== END 2024-04-02 17:19 | DRG 870 ==
LOC: JER 03:23 → JERBED 06:43 → JICU 10:44 → J2W 03-26 00:18 → J5S 04-01 16:53
PROVIDERS: ADMIT Internal Medicine Pulmonary Disease
PROC: 5A1955Z Respiratory Ventilation, Greater than 96 Consecutive Hours (ICD-10-PCS; principal; 2024-03-24)
DX: A41.50 Gram-negative sepsis, unspecified (principal); G82.50 Quadriplegia, unspecified; G93.41 Metabolic encephalopathy; R65.21 Severe sepsis with septic shock; G61.0 Guillain-Barre syndrome; J96.10 Chronic respiratory failure, unspecified whether with hypoxia or hypercapnia; N17.9 Acute kidney failure, unspecified; N39.0 Urinary tract infection, site not specified; I48.20 Chronic atrial fibrillation, unspecified; E87.20 Acidosis, unspecified; E11.9 Type 2 diabetes mellitus without complications; E87.5 Hyperkalemia; R31.0 Gross hematuria; D64.9 Anemia, unspecified; E78.5 Hyperlipidemia, unspecified; L89.152 Pressure ulcer of sacral region, stage 2; R50.9 Fever, unspecified; G62.9 Polyneuropathy, unspecified; N31.9 Neuromuscular dysfunction of bladder, unspecified; B96.4 Proteus (mirabilis) (morganii) as the cause of diseases classified elsewhere; Z88.0 Allergy status to penicillin
CPT/HCPCS: 0241U-QW; 36415; 36430; 71045-TC-FY; 76775-TC; 80048; 80053; 81003; 82272; 82550; 82607; 82728; 82746; 82803; 82962; 83540; 83550; 83605; 83735; 84100; 84466; 84484; 85025; 85027; 85045; 85610; 85730; 86682; 86704; 86705; 86803; 86850; 86900; 86901; 86922; 87040; 87070; 87086; 87186; 87205; 87324; 87340; 87449; 87481; 87517; 93005; 93010; 94002; 94640; 99291; G0480; J0131; P9058

== ENCOUNTER 2024-04-16 00:12 | Inpatient (IN) | payer OTHER, BC ==
[2024-04-16 01:30] LABS: VENOUS BASE EXCESS 7.5 mmol/L (-2-2); VENOUS O2 SATURATION 68.8 % (70-80); VENOUS PCO2 53.1 mmHg (38-52); VENOUS PH 7.421 (7.310-7.410)
[2024-04-16] MEDS: LACTATED RINGERS SOLUTION 1,000 ML/1,000 ML INFUS.BAG IV SCH ×3 (01:30→07:07)
[2024-04-16] MEDS: ACETAMINOPHEN 1000 MG/100 ML BAG IVPB ONE (01:30)
[2024-04-16 01:31] LABS: BASO % 0.5 % (0-2.0); EOS % 2.7 % (0-4.5); HEMATOCRIT 28.1 % (32.4-45.2); HEMOGLOBIN 8.7 GM/dL (10.7-15.3); LYMPH % 16.2 % (8-40); MCHC 30.8 g/dl (32.0-36.0); MEAN CELL VOLUME 87.7 fl (80-96); MEAN PLT VOLUME 9.3 fl (7.5-11.1); MONO % 6.2 % (3.8-10.2); NEUT % 74.4 % (42.8-82.8); PLATELET COUNT 315 10^3/uL (134-434); RBC 3.21 M/mm3 (3.60-5.2); RDW 17.8 % (11.6-15.6); WHITE BLOOD COUNT 13.5 K/mm3 (4.0-10.0)
[2024-04-16] MEDS ORDERED: ACETAMINOPHEN INJECTION 100 ML ONE (01:33)
[2024-04-16 01:37] LABS: INR 1.56 (0.83-1.09); PROTHROMBIN TIME (PATIENT) 17.7 SEC (9.7-13.0)
[2024-04-16 01:40] LABS: ACTIVATED PTT 36.9 SECONDS (25.2-36.5)
[2024-04-16 02:03] LABS: POTASSIUM 4.9 mmol/L (3.5-5.1)
[2024-04-16 02:05] LABS: CALCIUM 8.6 mg/dL (8.5-10.1)
[2024-04-16 02:06] LABS: ALBUMIN 2.4 g/dl (3.4-5.0); BLOOD UREA NITROGEN 43.2 mg/dL (7-18); MAGNESIUM 2.6 mg/dL (1.8-2.4)
[2024-04-16 02:09] LABS: CREATININE 0.6 mg/dL (0.55-1.3)
[2024-04-16 02:10] LABS: BILIRUBIN,TOTAL 0.4 mg/dL (0.2-1); TOT PROT 6.4 g/dl (6.4-8.2)
[2024-04-16 02:14] LABS: LACTIC ACID 2.1 mmol/L (0.4-2.0)
[2024-04-16] MEDS ORDERED: IBUPROFEN 800 MG/8 ML IJ IVPB ONE ×2 (03:22→05:13)
[2024-04-16] MEDS: IBUPROFEN 800 MG/8 ML IJ IVPB ONE (03:30)
[2024-04-16] MEDS: SODIUM CHLORIDE 0.9% 500 ML INFUS.BAG IV ONE (04:45)
[2024-04-16 04:56] LABS: EPI CELLS >36 /uL (0-25.1); HYALINE CASTS 2 /uL (0-3.1); PH,URINE 5.5 (5.0-8.0); URINE APPEARANCE CLOUDY; URINE BACTERIA 109 /uL (0-1359); URINE BILIRUBIN NEGATIVE (NEGATIVE); URINE GLUCOSE (UA) NEGATIVE (NEGATIVE); URINE KETONE NEGATIVE (NEGATIVE); URINE LEUK ESTERASE 2+ (NEGATIVE); URINE NITRITE NEGATIVE (NEGATIVE); URINE PROTEIN 1+ (NEGATIVE); URINE RBC 92 /uL (0-23.9); URINE UROBILINOGEN 0.2 mg/dL (0.2-1.0); URINE WBC 1102 /uL (0-25.8)
[2024-04-16] MEDS: VANCOMYCIN PREMIX 1.75 GM 1,750 MG/350 ML PIGGYBACK IVPB ONE (05:12)
[2024-04-16 05:47] LABS: LACTIC ACID 2.7 mmol/L (0.4-2.0)
[2024-04-16] MEDS ORDERED: MIDODRINE HCL 5 MG TABLET ONE (06:16)
[2024-04-16] MEDS: MIDODRINE HCL 5 MG TABLET GT ONE (06:50)
[2024-04-16] MEDS ORDERED: MEROPENEM-0.9% SODIUM CHLORIDE 1 GM/50 ML BAG IVPB ONE (06:56)
[2024-04-16] MEDS: MEROPENEM 1 GM in DEXTROSE 5%-WATER 100 ML IVPB SCH (07:09)
[2024-04-16 07:19] LABS: URINE COLOR 589952
[2024-04-16 07:36] LABS: BASO % 0.7 % (0-2.0); EOS % 1.3 % (0-4.5); HEMATOCRIT 24.3 % (32.4-45.2); HEMOGLOBIN 7.2 GM/dL (10.7-15.3); LYMPH % 15.1 % (8-40); MCH 26.6 pg (25.7-33.7); MCHC 29.8 g/dl (32.0-36.0); MEAN CELL VOLUME 89.3 fl (80-96); MEAN PLT VOLUME 10.2 fl (7.5-11.1); MONO % 5.5 % (3.8-10.2); NEUT % 77.4 % (42.8-82.8); PLATELET COUNT 274 10^3/uL (134-434); RBC 2.72 M/mm3 (3.60-5.2); RDW 17.6 % (11.6-15.6); WHITE BLOOD COUNT 13.9 K/mm3 (4.0-10.0)
[2024-04-16 07:41] LABS: POTASSIUM 4.8 mmol/L (3.5-5.1)
[2024-04-16 07:43] LABS: CALCIUM 8.4 mg/dL (8.5-10.1)
[2024-04-16 07:44] LABS: ALBUMIN 2.2 g/dl (3.4-5.0); BLOOD UREA NITROGEN 40.2 mg/dL (7-18)
[2024-04-16 07:47] LABS: CREATININE 0.5 mg/dL (0.55-1.3)
[2024-04-16 07:48] LABS: BILIRUBIN,TOTAL 0.4 mg/dL (0.2-1)
[2024-04-16 07:49] LABS: TOT PROT 5.8 g/dl (6.4-8.2)
[2024-04-16 07:57] LABS: MAGNESIUM 2.4 mg/dL (1.8-2.4)
[2024-04-16 08:01] LABS: PHOSPHOROUS 3.3 mg/dL (2.5-4.9)
[2024-04-16] MEDS ORDERED: MEROPENEM-0.9% SODIUM CHLORIDE 1 GM/50 ML BAG IVPB SCH ×3 (10:00→18:00)
[2024-04-16] MEDS: ALBUTEROL SO4 0.083% IH SOL 2.5 MG/3 ML VIAL.NEB. NEB SCH (11:55)
[2024-04-16] MEDS: MIDODRINE HCL 5 MG TABLET GT SCH (12:52)
[2024-04-16] MEDS: APIXABAN 5 MG TABLET GT SCH (12:52)
[2024-04-16] MEDS: ARTIFICIAL TEARS OPHTHALMIC DROPS OU SCH ×2 (12:52→23:05)
[2024-04-16] MEDS: VANCOMYCIN PREMIX 1.5 GM 1,500 MG/300 ML BAG IVPB ONE (12:54)
[2024-04-16] MEDS: MEROPENEM-0.9% SODIUM CHLORIDE 1 GM/50 ML BAG IVPB SCH ×2 (13:17→22:16)
[2024-04-16] MEDS: VANCOMYCIN ORAL SOLUTION 125 MG/2.5 ML GT SCH ×2 (14:07→23:06)
[2024-04-16] MEDS: AMINO ACIDS/PROTEIN HYDROLYS 30 ML LIQUID.PKT GT SCH (16:58)
[2024-04-16] MEDS: ACETAMINOPHEN 1000 MG/100 ML BAG IVPB PRN (16:58)
[2024-04-16] MEDS: DEXTROSE 5%-0.45% SALINE 1,000 ML IV SCH ×2 (16:59→22:15)
[2024-04-16] MEDS: LACTATED RINGERS SOLUTION 1,000 ML/1,000 ML INFUS.BAG IV STA ×2 (17:08→18:08)
[2024-04-16 19:57] LABS: EOS % 3.6 % (0-4.5); LYMPH % 19.3 % (8-40); MCH 26.4 pg (25.7-33.7); MCHC 30.1 g/dl (32.0-36.0); MEAN CELL VOLUME 87.6 fl (80-96); MEAN PLT VOLUME 8.9 fl (7.5-11.1); MONO % 6.7 % (3.8-10.2); NEUT % 69.4 % (42.8-82.8); PLATELET COUNT 231 10^3/uL (134-434); RDW 17.5 % (11.6-15.6); WHITE BLOOD COUNT 11.5 K/mm3 (4.0-10.0)
[2024-04-16 20:06] LABS: HEMOGLOBIN 6.6 GM/dL (10.7-15.3)
[2024-04-16 20:07] LABS: HEMATOCRIT 21.9 % (32.4-45.2)
[2024-04-16] MEDS ORDERED: ACETAMINOPHEN 1000 MG/100 ML BAG IVPB PRN (20:40)
[2024-04-16] MEDS ORDERED: ASCORBIC ACID 500 MG/5 ML UNIT DOSE CUP GT SCH (22:00)
[2024-04-16] MEDS ORDERED: METOPROLOL TARTRATE 25 MG TABLET (FP) GT SCH (22:00)
[2024-04-16] MEDS ORDERED: ATORVASTATIN CA 20 MG TABLET (FP) GT SCH (22:00)
[2024-04-16] MEDS ORDERED: LACTOBACILLUS ACIDOPHILUS 1 TABLET GT SCH (22:00)
[2024-04-16] MEDS ORDERED: DOXAZOSIN MESYLATE 2 MG TABLET GT SCH (22:00)
[2024-04-16] MEDS ORDERED: PANTOPRAZOLE SODIUM 40 MG VIAL IVPUSH SCH (22:00)
[2024-04-16] MEDS: SODIUM CHLORIDE 0.45% 1,000 ML IV SCH (22:15)
[2024-04-16] MEDS: MUPIROCIN 2% TOPICAL OINTMENT FOR DECOLONIZATION NS SCH (22:15)
[2024-04-16] MEDS: CHLORHEXIDINE GLUCONATE 4% CLEANSER FOR DECOLONIZATION TP SCH (22:16)
[2024-04-16] MEDS: ATORVASTATIN CA 20 MG TABLET (FP) GT SCH (22:16)
[2024-04-16] MEDS: LACTOBACILLUS ACIDOPHILUS 1 TABLET GT SCH (22:16)
[2024-04-16] MEDS: DOXAZOSIN MESYLATE 2 MG TABLET GT SCH (22:16)
[2024-04-16] MEDS: PANTOPRAZOLE SODIUM 40 MG VIAL IVPUSH SCH (22:17)
[2024-04-16] MEDS: ASCORBIC ACID 500 MG/5 ML UNIT DOSE CUP GT SCH (22:17)
[2024-04-17] MEDS ORDERED: MEROPENEM-0.9% SODIUM CHLORIDE 1 GM/50 ML BAG IVPB SCH (02:00)
[2024-04-17] MEDS: MIDODRINE HCL 5 MG TABLET GT SCH (02:09)
[2024-04-17 02:16] LABS: HEMATOCRIT 23.6 % (32.4-45.2); HEMOGLOBIN 7.3 GM/dL (10.7-15.3); MCH 27.2 pg (25.7-33.7); MCHC 31.1 g/dl (32.0-36.0); MEAN CELL VOLUME 87.5 fl (80-96); MEAN PLT VOLUME 9.2 fl (7.5-11.1); PLATELET COUNT 238 10^3/uL (134-434); RDW 16.8 % (11.6-15.6)
[2024-04-17 02:42] LABS: POTASSIUM 3.9 mmol/L (3.5-5.1)
[2024-04-17 02:44] LABS: CALCIUM 8.3 mg/dL (8.5-10.1); CALCIUM 8.4 mg/dL (8.5-10.1)
[2024-04-17 02:45] LABS: ALBUMIN 1.9 g/dl (3.4-5.0); BLOOD UREA NITROGEN 27.5 mg/dL (7-18)
[2024-04-17 02:48] LABS: CREATININE 0.3 mg/dL (0.55-1.3); PHOSPHOROUS 3.4 mg/dL (2.5-4.9)
[2024-04-17 02:49] LABS: BILIRUBIN,TOTAL 0.8 mg/dL (0.2-1)
[2024-04-17 02:50] LABS: TOT PROT 5.1 g/dl (6.4-8.2)
[2024-04-17 05:56] LABS: ARTERIAL BLD GAS O2 SATURATION 98.5 % (95-98); ARTERIAL BLOOD GAS BASE EXCESS 3.5 mmol/L (-2-2); ARTERIAL BLOOD GAS PO2 125.7 mmHg (80-100); ARTERIAL BLOOD GAS pH 7.416 (7.350-7.450)
[2024-04-17 06:02] LABS: ALLENS TEST POSITIVE; VENT MODE A/C; VENT RATE 12
[2024-04-17 07:43] LABS: BASO % 0.6 % (0-2.0); EOS % 4.6 % (0-4.5); HEMATOCRIT 24.4 % (32.4-45.2); HEMOGLOBIN 7.7 GM/dL (10.7-15.3); LYMPH % 15.8 % (8-40); MCH 27.7 pg (25.7-33.7); MCHC 31.7 g/dl (32.0-36.0); MEAN CELL VOLUME 87.4 fl (80-96); MEAN PLT VOLUME 9.2 fl (7.5-11.1); MONO % 4.8 % (3.8-10.2); NEUT % 74.2 % (42.8-82.8); PLATELET COUNT 252 10^3/uL (134-434); RBC 2.79 M/mm3 (3.60-5.2); RDW 16.7 % (11.6-15.6); WHITE BLOOD COUNT 10.1 K/mm3 (4.0-10.0)
[2024-04-17 08:03] LABS: POTASSIUM 3.9 mmol/L (3.5-5.1)
[2024-04-17 08:06] LABS: CALCIUM 8.7 mg/dL (8.5-10.1)
[2024-04-17 08:07] LABS: BLOOD UREA NITROGEN 24.8 mg/dL (7-18)
[2024-04-17 08:10] LABS: CREATININE 0.2 mg/dL (0.55-1.3)
[2024-04-17 08:11] LABS: PHOSPHOROUS 3.1 mg/dL (2.5-4.9)
[2024-04-17] MEDS: ALBUTEROL SO4 0.083% IH SOL 2.5 MG/3 ML VIAL.NEB. NEB SCH (08:17)
[2024-04-17 08:21] LABS: ACTIVATED PTT 31.3 SECONDS (25.2-36.5)
[2024-04-17 08:23] LABS: INR 1.31 (0.83-1.09); PROTHROMBIN TIME (PATIENT) 14.7 SEC (9.7-13.0)
[2024-04-17] MEDS: MEROPENEM-0.9% SODIUM CHLORIDE 1 GM/50 ML BAG IVPB SCH (09:06)
[2024-04-17] MEDS: AMINO ACIDS/PROTEIN HYDROLYS 30 ML LIQUID.PKT GT SCH (09:37)
[2024-04-17] MEDS: ZINC SULFATE 220 MG CAPSULE (FP) GT SCH (09:38)
[2024-04-17] MEDS: ZINC OXIDE 20% TOPICAL OINTMENT 30 GM TUBE TP SCH (09:38)
[2024-04-17] MEDS ORDERED: ZINC OXIDE 20% TOPICAL OINTMENT 30 GM TUBE TP SCH (10:00)
[2024-04-17] MEDS ORDERED: ZINC SULFATE 220 MG CAPSULE (FP) GT SCH (10:00)
[2024-04-17] MEDS ORDERED: FAMOTIDINE 20 MG/2.5 ML ORAL LIQUID PEG SCH ×2 (10:00)
[2024-04-17] MEDS ORDERED: SODIUM CHLORIDE 0.45% 1,000 ML IV SCH (13:30)
[2024-04-17] MEDS ORDERED: AMINO ACIDS/PROTEIN HYDROLYS 30 ML LIQUID.PKT GT SCH (14:00)
[2024-04-17] MEDS ORDERED: levETIRAcetam 500 MG TABLET (FP) PO SCH (22:00)
[2024-04-18] MEDS: MEROPENEM 1 GM PUSH 1 GM/20 ML DISP.SYRIN IVPUSH SCH (01:52)
[2024-04-18 07:48] LABS: HEMATOCRIT 26.1 % (32.4-45.2); HEMOGLOBIN 8.5 GM/dL (10.7-15.3); MCH 27.7 pg (25.7-33.7); MCHC 32.7 g/dl (32.0-36.0); MEAN CELL VOLUME 84.8 fl (80-96); MEAN PLT VOLUME 9.1 fl (7.5-11.1); PLATELET COUNT 270 10^3/uL (134-434); RBC 3.08 M/mm3 (3.60-5.2); RDW 17.8 % (11.6-15.6); WHITE BLOOD COUNT 8.7 K/mm3 (4.0-10.0)
[2024-04-18 08:01] LABS: CHLORIDE 111 mmol/L (98-107); POTASSIUM 3.9 mmol/L (3.5-5.1); SODIUM 146 mmol/L (136-145)
[2024-04-18 08:09] LABS: ALBUMIN 2.1 g/dl (3.4-5.0)
[2024-04-18 08:10] LABS: SGPT/ALT 25 U/L (13-61)
[2024-04-18 08:12] LABS: BILIRUBIN,TOTAL 0.5 mg/dL (0.2-1); TOT PROT 5.1 g/dl (6.4-8.2)
[2024-04-18 08:13] LABS: ALK PHOS 115 U/L (45-117); SGOT/AST 19 U/L (15-37)
[2024-04-18 08:18] LABS: IRON SERUM 23 ug/dL (50-175)
[2024-04-18 08:21] LABS: TOTAL IRON BINDING CAPACITY 157 ug/dL (250-450)
[2024-04-18 08:24] LABS: ANION GAP 6 mmol/L (4-13); CALCIUM 8.7 mg/dL (8.5-10.1); CO2 28 mmol/L (21-32); GLUCOSE,RANDOM 107 mg/dL (74-106); MAGNESIUM 1.9 mg/dL (1.8-2.4)
[2024-04-18 08:27] LABS: CREATININE < 0.2 mg/dL (0.55-1.3)
[2024-04-18 08:28] LABS: PHOSPHOROUS 2.6 mg/dL (2.5-4.9)
[2024-04-18] MEDS ORDERED: MEROPENEM-0.9% SODIUM CHLORIDE 1 GM/50 ML BAG IVPB SCH (10:02)
[2024-04-18] MEDS: MEROPENEM-0.9% SODIUM CHLORIDE 1 GM/50 ML BAG IVPB SCH ×2 (10:17→17:20)
[2024-04-18] MEDS: ASCORBIC ACID 500 MG/5 ML UNIT DOSE CUP GT SCH ×2 (10:41→21:30)
[2024-04-18] MEDS: MULTIVIT-MINERALS ORAL LIQUID GT SCH (10:41)
[2024-04-18] MEDS: DEXTROSE 5%-0.45% SALINE 1,000 ML IV SCH ×2 (10:42→15:38)
[2024-04-18 14:19] VITALS: BMI 36.5
[2024-04-18] MEDS: ALBUTEROL SO4 0.083% IH SOL 2.5 MG/3 ML VIAL.NEB. NEB SCH (15:00)
[2024-04-18] MEDS: ACETAMINOPHEN 1000 MG/100 ML BAG IVPB PRN (15:38)
[2024-04-18] MEDS: MIDODRINE HCL 5 MG TABLET GT SCH (17:22)
[2024-04-18] MEDS: MUPIROCIN 2% TOPICAL OINTMENT FOR DECOLONIZATION NS SCH (21:27)
[2024-04-18] MEDS: CHLORHEXIDINE GLUCONATE 4% CLEANSER FOR DECOLONIZATION TP SCH (21:27)
[2024-04-18] MEDS: DOXAZOSIN MESYLATE 2 MG TABLET GT SCH (21:27)
[2024-04-18] MEDS: ATORVASTATIN CA 20 MG TABLET (FP) GT SCH (21:27)
[2024-04-18] MEDS: LACTOBACILLUS ACIDOPHILUS 1 TABLET GT SCH (21:27)
[2024-04-18] MEDS: PANTOPRAZOLE SODIUM 40 MG VIAL IVPUSH SCH (21:30)
[2024-04-19] MEDS: ARTIFICIAL TEARS OPHTHALMIC DROPS OU SCH
[2024-04-19 07:27] LABS: HEMATOCRIT 22.6 % (32.4-45.2); HEMOGLOBIN 7.3 GM/dL (10.7-15.3); MCHC 32.3 g/dl (32.0-36.0); MEAN CELL VOLUME 86.7 fl (80-96); MEAN PLT VOLUME 8.6 fl (7.5-11.1); PLATELET COUNT 280 10^3/uL (134-434); RBC 2.61 M/mm3 (3.60-5.2); RDW 17.9 % (11.6-15.6); WHITE BLOOD COUNT 9.2 K/mm3 (4.0-10.0)
[2024-04-19 07:48] LABS: CALCIUM 8.4 mg/dL (8.5-10.1)
[2024-04-19 07:49] LABS: BLOOD UREA NITROGEN 17.3 mg/dL (7-18); MAGNESIUM 1.8 mg/dL (1.8-2.4)
[2024-04-19 07:51] LABS: CREATININE 0.2 mg/dL (0.55-1.3); PHOSPHOROUS 2.5 mg/dL (2.5-4.9)
[2024-04-19 07:53] LABS: BILIRUBIN,TOTAL 0.3 mg/dL (0.2-1); TOT PROT 4.8 g/dl (6.4-8.2)
[2024-04-19] MEDS: MULTIVIT-MINERALS ORAL LIQUID GT SCH (09:24)
[2024-04-19] MEDS: ZINC SULFATE 220 MG CAPSULE (FP) GT SCH (09:28)
[2024-04-19] MEDS: ZINC OXIDE 20% TOPICAL OINTMENT 30 GM TUBE TP SCH (09:28)
[2024-04-19] MEDS ORDERED: ASCORBIC ACID 500 MG/5 ML UNIT DOSE CUP GT SCH (10:00)
[2024-04-19] MEDS: HEPARIN NA (PORCINE) 5,000 UNITS/ML 1ML VIAL SQ SCH (22:06)
[2024-04-20 07:49] LABS: BASO % 0.7 % (0-2.0); EOS % 1.1 % (0-4.5); HEMATOCRIT 22.6 % (32.4-45.2); HEMOGLOBIN 7.3 GM/dL (10.7-15.3); LYMPH % 11.8 % (8-40); MCH 28.3 pg (25.7-33.7); MCHC 32.6 g/dl (32.0-36.0); MEAN CELL VOLUME 86.8 fl (80-96); MEAN PLT VOLUME 8.7 fl (7.5-11.1); MONO % 4.8 % (3.8-10.2); NEUT % 81.6 % (42.8-82.8); PLATELET COUNT 297 10^3/uL (134-434); RDW 18.2 % (11.6-15.6); WHITE BLOOD COUNT 10.3 K/mm3 (4.0-10.0)
[2024-04-20 08:03] LABS: POTASSIUM 4.3 mmol/L (3.5-5.1)
[2024-04-20 08:08] LABS: BLOOD UREA NITROGEN 18.2 mg/dL (7-18); CALCIUM 8.1 mg/dL (8.5-10.1); MAGNESIUM 1.7 mg/dL (1.8-2.4)
[2024-04-20 08:11] LABS: PHOSPHOROUS 2.6 mg/dL (2.5-4.9)
[2024-04-20 08:13] LABS: CREATININE 0.3 mg/dL (0.55-1.3)
[2024-04-21] MEDS: MEROPENEM-0.9% SODIUM CHLORIDE 1 GM/50 ML BAG IVPB SCH (01:45)
[2024-04-21] MEDS: ACETAMINOPHEN 1000 MG/100 ML BAG IVPB PRN (04:52)
[2024-04-21] MEDS: ARTIFICIAL TEARS OPHTHALMIC DROPS OU SCH (05:05)
[2024-04-21] MEDS: HEPARIN NA (PORCINE) 5,000 UNITS/ML 1ML VIAL SQ SCH (05:23)
[2024-04-21] MEDS: ALBUTEROL SO4 0.083% IH SOL 2.5 MG/3 ML VIAL.NEB. NEB SCH (08:30)
[2024-04-21 09:36] LABS: HEMATOCRIT 22.2 % (32.4-45.2); HEMOGLOBIN 7.2 GM/dL (10.7-15.3); MCHC 32.5 g/dl (32.0-36.0); MEAN CELL VOLUME 85.9 fl (80-96); PLATELET COUNT 337 10^3/uL (134-434); RBC 2.59 M/mm3 (3.60-5.2); RDW 17.7 % (11.6-15.6); WHITE BLOOD COUNT 9.7 K/mm3 (4.0-10.0)
[2024-04-21] MEDS ORDERED: MUPIROCIN 2% TOPICAL OINTMENT FOR DECOLONIZATION NS SCH (10:00)
[2024-04-21 10:26] LABS: CALCIUM 8.7 mg/dL (8.5-10.1)
[2024-04-21 10:27] LABS: BLOOD UREA NITROGEN 16.3 mg/dL (7-18)
[2024-04-21 10:30] LABS: CREATININE 0.3 mg/dL (0.55-1.3); PHOSPHOROUS 2.2 mg/dL (2.5-4.9)
[2024-04-21 10:31] LABS: BILIRUBIN,TOTAL 0.3 mg/dL (0.2-1); TOT PROT 4.9 g/dl (6.4-8.2)
[2024-04-21] MEDS: MULTIVIT-MINERALS ORAL LIQUID GT SCH (11:23)
[2024-04-21] MEDS: ASCORBIC ACID 500 MG/5 ML UNIT DOSE CUP GT SCH (11:23)
[2024-04-21] MEDS: ZINC SULFATE 220 MG CAPSULE (FP) GT SCH (11:24)
[2024-04-21] MEDS: LACTOBACILLUS ACIDOPHILUS 1 TABLET GT SCH (11:25)
[2024-04-21] MEDS: PANTOPRAZOLE SODIUM 40 MG VIAL IVPUSH SCH (11:26)
[2024-04-21] MEDS: MIDODRINE HCL 5 MG TABLET GT SCH (11:28)
[2024-04-21] MEDS: ZINC OXIDE 20% TOPICAL OINTMENT 30 GM TUBE TP SCH (13:29)
[2024-04-21] MEDS: INSULIN ASPART SLIDING SCALE (NOVOLOG) 1 VIAL SQ SCH (21:44)
[2024-04-21] MEDS: ATORVASTATIN CA 20 MG TABLET (FP) GT SCH (21:44)
[2024-04-21] MEDS: DOXAZOSIN MESYLATE 2 MG TABLET GT SCH (21:44)
[2024-04-21] MEDS ORDERED: CHLORHEXIDINE GLUCONATE 4% CLEANSER FOR DECOLONIZATION TP SCH (22:00)
[2024-04-22 09:52] LABS: HEMATOCRIT 24.8 % (32.4-45.2); HEMOGLOBIN 7.5 GM/dL (10.7-15.3); MCH 26.4 pg (25.7-33.7); MCHC 30.4 g/dl (32.0-36.0); MEAN CELL VOLUME 86.9 fl (80-96); MEAN PLT VOLUME 7.8 fl (7.5-11.1); PLATELET COUNT 367 10^3/uL (134-434); RBC 2.85 M/mm3 (3.60-5.2); RDW 18.2 % (11.6-15.6); WHITE BLOOD COUNT 11.1 K/mm3 (4.0-10.0)
[2024-04-22 10:15] LABS: ALBUMIN 1.9 g/dl (3.4-5.0); BLOOD UREA NITROGEN 14.7 mg/dL (7-18); CALCIUM 8.9 mg/dL (8.5-10.1)
[2024-04-22 10:18] LABS: CREATININE 0.2 mg/dL (0.55-1.3)
[2024-04-22 10:19] LABS: PHOSPHOROUS 2.5 mg/dL (2.5-4.9)
[2024-04-22 10:20] LABS: BILIRUBIN,TOTAL 0.4 mg/dL (0.2-1); TOT PROT 4.8 g/dl (6.4-8.2)
[2024-04-22 16:53] VITALS: BP 124/65; PULSE 94; RESP 18; TEMP 97.7
== END 2024-04-22 18:30 | DRG 853 ==
LOC: JER 00:12 → JERBED 02:55 → J2W 08:12 → J5S 04-21 00:12
PROVIDERS: ADMIT Internal Medicine; ATTEND Internal Medicine
PROC: 5A1955Z Respiratory Ventilation, Greater than 96 Consecutive Hours (ICD-10-PCS; 2024-04-16)
PROC: 0JB70ZZ Excision of Back Subcutaneous Tissue and Fascia, Open Approach (ICD-10-PCS; principal; 2024-04-18 11:30)
DX: A41.89 Other specified sepsis (principal); G82.50 Quadriplegia, unspecified; J69.0 Pneumonitis due to inhalation of food and vomit; J96.21 Acute and chronic respiratory failure with hypoxia; E87.20 Acidosis, unspecified; E87.0 Hyperosmolality and hypernatremia; G61.0 Guillain-Barre syndrome; E44.0 Moderate protein-calorie malnutrition; Z68.41 Body mass index [BMI] 40.0-44.9, adult; R65.20 Severe sepsis without septic shock; E11.9 Type 2 diabetes mellitus without complications; E78.5 Hyperlipidemia, unspecified; L89.150 Pressure ulcer of sacral region, unstageable; R00.0 Tachycardia, unspecified; R33.9 Retention of urine, unspecified; I10 Essential (primary) hypertension; D63.8 Anemia in other chronic diseases classified elsewhere; N31.9 Neuromuscular dysfunction of bladder, unspecified; E86.0 Dehydration; Z74.01 Bed confinement status; Z93.1 Gastrostomy status; Z93.0 Tracheostomy status
CPT/HCPCS: 0241U-QW; 36415; 36430; 36600; 71045-TC-FY; 80048; 80053; 81003; 82150; 82272; 82550; 82607; 82728; 82746; 82803; 82962; 83036; 83540; 83550; 83605; 83690; 83735; 83880; 84100; 84436; 84443; 84484; 85025; 85027; 85610; 85730; 86850; 86870; 86880; 86900; 86901; 86902; 86922; 87040; 87070; 87086; 87186; 87205; 87324; 87449; 87481; 88304-TC; 93005; 93010; 93306-TC; 94002; 94640; 99285-25; J0131; J1644; J3370; P9038; P9058